=== PATIENT | female | born 1960 | race Caucasian/White ===

== ENCOUNTER 2020-07-05 11:28 | Inpatient (IN) ==
[2020-07-05] MEDS ORDERED: Naloxone 0.4 MG/ML INJ IVP PRN (15:28)
[2020-07-05] MEDS ORDERED: Melatonin 3 MG TABLET PO PRN (16:09)
[2020-07-05] MEDS ORDERED: Ondansetron 4 MG/2 ML VIAL IVP PRN (16:09)
[2020-07-05] MEDS: Carbidopa/Levodopa ER 50/200 TABLET PO SCH ×2 (17:44→22:10)
[2020-07-05 18:26] LABS: Amphetamine Screen,Urine Negative ng/mL (Cutoff=1000); Barbiturate Screen,Urine Negative ng/mL (Cutoff=200); Benzodiazepines Screen,Urine Negative ng/mL (Cutoff=200); Cannabinoid Screen,Urine Negative ng/mL (Cutoff = 50); Cocaine Screen,Urine Negative ng/mL (Cutoff= 300); Opiate Screen,Urine Positive ng/mL (Cutoff=300); Phencyclidine Screen,Urine Negative ng/mL (Cutoff=25)
[2020-07-05] MEDS: Baclofen 10 MG TABLET PO PRN (19:45)
[2020-07-05] MEDS ORDERED: lamoTRIgine 100 MG TABLET PO SCH (21:00)
[2020-07-06] MEDS ORDERED: Potassium Chloride 40 MEQ, Lidocaine 1% 2 ML in 0.9 % Sodium Chloride 500 ML IVPB ONE (02:00)
[2020-07-06] MEDS: Baclofen 10 MG TABLET PO PRN (03:38)
[2020-07-06 04:44] LABS: Prothrombin Time 11.7 Seconds (9.4-12.1)
[2020-07-06 04:45] LABS: Basophils # 0.1 K/mcL (0.0-0.2); Basophils % 0.9 %; Eosinophils # 0.4 K/mcL (0.0-0.6); Hematocrit 37.8 % (35.3-44.9); Hemoglobin 12.5 g/dL (11.5-15.4); Immature Granulocytes % 0.2 % (0-4); Lymphocytes # 1.7 K/mcL (0.6-4.6); Lymphocytes % 30.8 %; Mean Corpuscular HGB Conc 33.1 g/dL (31.6-35.5); Mean Corpuscular Hemoglobin 30.3 pg (28.0-33.3); Mean Corpuscular Volume 91.5 fL (83.0-100.0); Mean Platelet Volume 8.8 fL (9.4-12.4); Monocytes # 0.6 K/mcL (0.0-1.3); Monocytes % 11.5 %; Neutrophils # 2.8 K/mcL (1.6-8.9); Platelet Count 205 K/mcL (140-400); Red Blood Count 4.13 M/mcL (3.82-4.97); Red Cell Distribution Width 13.6 % (11.5-14.5); Segmented Neutrophils % 49.6 %; White Blood Count 5.6 K/mcL (4.3-11.1)
[2020-07-06 05:59] LABS: BUN/Creatinine Ratio 22 (6-26); Blood Urea Nitrogen 17 mg/dL (6-20); Calcium 9.6 mg/dL (8.6-10.3); Carbon Dioxide 26 mEq/L (23-29); Chloride 105 mEq/L (98-107); Glucose 71 mg/dL (70-105); Magnesium 1.8 mg/dL (1.6-2.6); Osmolality,Calculated 296 (280-300); Phosphorous 2.8 mg/dL (2.7-4.5); Potassium 3.8 mEq/L (3.5-5.1); Sodium 143 mEq/L (136-145); eGFR For African Americans > 60 (> 60); eGFR For Non-African Americans > 60 (> 60)
[2020-07-06] MEDS ORDERED: TOTAL JOINT MIXTURE (100ML) INTRAART ONE (06:00)
[2020-07-06] MEDS ORDERED: Povidone-Iodine 45 ML, Sodium Chloride IRRigation 1,000 ML IR ONE (06:00)
[2020-07-06] MEDS ORDERED: Ethanol\\Acetic Acid\\Na Ace\\Ben 1,000 ML IRRIG.SOLN IR ONE (07:11)
[2020-07-06] MEDS ORDERED: Vancomycin 1,000 MG VIAL ONE (07:11)
[2020-07-06] MEDS ORDERED: *HR* Midazolam HCl 2 MG/2 ML VIAL ONE (07:23)
[2020-07-06] MEDS ORDERED: *HR* Succinylcholine 200 MG/10 ML VIAL IVP ONE (07:23)
[2020-07-06] MEDS ORDERED: *HR* Propofol 200 MG/20 ML VIAL IVP ONE ×2 (07:23→08:15)
[2020-07-06] MEDS ORDERED: Lidocaine -MPF 2% 2 ML VIAL ONE (07:23)
[2020-07-06] MEDS ORDERED: Dexamethasone 4 MG/ML VIAL ONE (07:23)
[2020-07-06] MEDS ORDERED: *HR* FentaNYL (PF) 100 MCG/2 ML VIAL ONE (07:23)
[2020-07-06] MEDS ORDERED: Ondansetron 4 MG/2 ML VIAL ONE (07:23)
[2020-07-06] MEDS ORDERED: Lidocaine HCL 4 ML Topical Solution (Laryng-O-Jet Kit Sterile Pak) TP ONE (07:25)
[2020-07-06] MEDS ORDERED: Tranexamic Acid 1,000 MG/10 ML VIAL ONE (07:25)
[2020-07-06] MEDS: Carbidopa/Levodopa ER 50/200 TABLET PO SCH ×2 (07:38→21:42)
[2020-07-06] MEDS ORDERED: CeFAZolin Syr 2,000MG/20 ML 2,000 MG/20 ML SYRINGE IVPB ONE (08:07)
[2020-07-06] MEDS ORDERED: Albuterol 2.5 MG/3 ML NEBULIZER IH PRN (08:13)
[2020-07-06] MEDS ORDERED: *HR* HYDROmorphone PF 0.5 MG/0.5 ML SYRINGE IVP PRN (08:13)
[2020-07-06] MEDS ORDERED: *HR* OxyCODONE Immed Rel 5 MG TABLET PO PRN (08:13)
[2020-07-06] MEDS ORDERED: Ondansetron 4 MG/2 ML VIAL IVP PRN ×2 (08:13→11:26)
[2020-07-06] MEDS ORDERED: Acetaminophen IV 1,000 MG/100 ML BAG IVPB ONE (08:13)
[2020-07-06] MEDS ORDERED: *HR* PHENYLEPHRINE 1,000 MCG/10 ML SYRINGE IVP ONE (08:55)
[2020-07-06] MEDS ORDERED: PARoxetine 20 MG TABLET PO SCH (09:00)
[2020-07-06] MEDS ORDERED: Cholecalciferol (D-3) 1,000 UNIT (25MCG) TABLET PO SCH (09:00)
[2020-07-06] MEDS ORDERED: Multivit/Ca/Min/Fe/FA 1 TAB TABLET PO SCH ×2 (09:00→11:26)
[2020-07-06 10:48] LABS: Hematocrit 32.5 % (35.3-44.9)
[2020-07-06 10:49] LABS: Hemoglobin 10.5 g/dL (11.5-15.4)
[2020-07-06] MEDS ORDERED: Dextrose Gel 15 GM/37.5 ML TUBE PO PRN ×2 (11:26)
[2020-07-06] MEDS ORDERED: D5% in Water 1,000 ML IVC PRN (11:26)
[2020-07-06] MEDS ORDERED: MOM Conc 10 ML UD.LIQ PO PRN (11:26)
[2020-07-06] MEDS ORDERED: Melatonin 3 MG TABLET PO PRN (11:26)
[2020-07-06] MEDS ORDERED: Naloxone 0.4 MG/ML INJ IVP PRN (11:26)
[2020-07-06] MEDS ORDERED: *HR* Promethazine 25 MG/ML VIAL IM PRN (11:26)
[2020-07-06] MEDS ORDERED: *HR* Dextrose 50 % in Water (Vial) 50 ML VIAL IVP PRN (11:26)
[2020-07-06] MEDS: Zinc Sulfate 220 MG CAPSULE PO SCH (12:23)
[2020-07-06] MEDS: Ascorbic Acid 500 MG TABLET PO SCH ×2 (12:23→16:34)
[2020-07-06] MEDS ORDERED: 0.9 % Sodium Chloride 1,000 ML ONE (15:03)
[2020-07-06] MEDS ORDERED: 0.9 % Sodium Chloride 1,000 ML IVC ONE (15:12)
[2020-07-06] MEDS: Insulin LISPRO 300 UNITS/3 ML VIAL SUBQ SCH ×3 (15:44→21:37)
[2020-07-06] MEDS: Ringers Solution, Lactated 1,000 ML IVC SCH (16:33)
[2020-07-06] MEDS: Ketorolac 15 MG/ML VIAL IVP SCH ×2 (16:34→23:51)
[2020-07-06] MEDS: CeFAZolin 2 GM/120 ML BAG IVPB SCH ×2 (16:42→23:51)
[2020-07-06] MEDS: lamoTRIgine 100 MG TABLET PO SCH (21:42)
[2020-07-06] MEDS: HYDROcodone BIT/Homatropine 5 MG TABLET PO PRN (21:42)
[2020-07-07 04:31] LABS: Basophils % 0.5 %; Eosinophils # 0.1 K/mcL (0.0-0.6); Eosinophils % 2.1 %; Hematocrit 25.1 % (35.3-44.9); Immature Granulocytes % 0.4 % (0-4); Lymphocytes # 1.3 K/mcL (0.6-4.6); Lymphocytes % 22.9 %; Mean Corpuscular HGB Conc 33.9 g/dL (31.6-35.5); Mean Corpuscular Hemoglobin 31.7 pg (28.0-33.3); Mean Corpuscular Volume 93.7 fL (83.0-100.0); Mean Platelet Volume 9.3 fL (9.4-12.4); Monocytes # 0.7 K/mcL (0.0-1.3); Monocytes % 11.7 %; Neutrophils # 3.5 K/mcL (1.6-8.9); Platelet Count 164 K/mcL (140-400); Red Blood Count 2.68 M/mcL (3.82-4.97); Red Cell Distribution Width 13.7 % (11.5-14.5); Segmented Neutrophils % 62.4 %; White Blood Count 5.6 K/mcL (4.3-11.1)
[2020-07-07 04:33] LABS: Hemoglobin 8.5 g/dL (11.5-15.4)
[2020-07-07 04:52] LABS: BUN/Creatinine Ratio 24 (6-26); Blood Urea Nitrogen 23 mg/dL (6-20); Calcium 8.4 mg/dL (8.6-10.3); Carbon Dioxide 26 mEq/L (23-29); Chloride 105 mEq/L (98-107); Glucose 152 mg/dL (70-105); Osmolality,Calculated 295 (280-300); Potassium 3.2 mEq/L (3.5-5.1); Sodium 139 mEq/L (136-145); eGFR For African Americans > 60 (> 60); eGFR For Non-African Americans > 60 (> 60)
[2020-07-07] MEDS: Ketorolac 15 MG/ML VIAL IVP SCH (06:01)
[2020-07-07] MEDS ORDERED: 0.9 % Sodium Chloride 1,000 ML IVC ONE (06:18)
[2020-07-07] MEDS ORDERED: 0.9 % Sodium Chloride 500 ML IV ONE (06:28)
[2020-07-07] MEDS: PARoxetine 20 MG TABLET PO SCH (08:16)
[2020-07-07] MEDS: Zinc Sulfate 220 MG CAPSULE PO SCH (08:16)
[2020-07-07] MEDS: Cholecalciferol (D-3) 1,000 UNIT (25MCG) TABLET PO SCH (08:17)
[2020-07-07] MEDS: Ascorbic Acid 500 MG TABLET PO SCH ×2 (08:17→19:03)
[2020-07-07] MEDS: *HR* OxyCODONE Immed Rel 5 MG TABLET PO PRN ×3 (08:17→19:02)
[2020-07-07] MEDS: Carbidopa/Levodopa ER 50/200 TABLET PO SCH ×2 (08:17→20:13)
[2020-07-07] MEDS: Aspirin Enteric Coated 81 MG Tablet PO SCH ×2 (08:17→19:56)
[2020-07-07] MEDS: lamoTRIgine 100 MG TABLET PO SCH ×2 (08:17→20:13)
[2020-07-07] MEDS: Insulin LISPRO 300 UNITS/3 ML VIAL SUBQ SCH ×4 (08:18→20:13)
[2020-07-07] MEDS: HYDROcodone BIT/Homatropine 5 MG TABLET PO PRN (11:33)
[2020-07-07] MEDS: Ringers Solution, Lactated 1,000 ML IVC SCH (11:45)
[2020-07-07] MEDS: Multivit/Ca/Min/Fe/FA 1 TAB TABLET PO SCH (11:50)
[2020-07-07] MEDS: Baclofen 10 MG TABLET PO PRN (13:05)
[2020-07-07] MEDS ORDERED: *HR* HYDROmorphone (PF) 1 MG/ML SYRINGE IVP ONE (22:49)
[2020-07-08 02:53] LABS: Basophils % 0.3 %; Eosinophils # 0.2 K/mcL (0.0-0.6); Eosinophils % 2.7 %; Hematocrit 23.2 % (35.3-44.9); Hemoglobin 7.7 g/dL (11.5-15.4); Immature Granulocytes % 0.3 % (0-4); Lymphocytes # 1.5 K/mcL (0.6-4.6); Lymphocytes % 23.3 %; Mean Corpuscular HGB Conc 33.2 g/dL (31.6-35.5); Mean Corpuscular Hemoglobin 31.3 pg (28.0-33.3); Mean Corpuscular Volume 94.3 fL (83.0-100.0); Mean Platelet Volume 9.4 fL (9.4-12.4); Monocytes # 0.6 K/mcL (0.0-1.3); Monocytes % 9.1 %; Platelet Count 161 K/mcL (140-400); Red Blood Count 2.46 M/mcL (3.82-4.97); Red Cell Distribution Width 14.2 % (11.5-14.5); Segmented Neutrophils % 64.3 %; White Blood Count 6.3 K/mcL (4.3-11.1)
[2020-07-08 03:15] LABS: BUN/Creatinine Ratio 38 (6-26); Blood Urea Nitrogen 21 mg/dL (6-20); Calcium 8.4 mg/dL (8.6-10.3); Carbon Dioxide 26 mEq/L (23-29); Chloride 108 mEq/L (98-107); Glucose 105 mg/dL (70-105); Osmolality,Calculated 291 (280-300); Potassium 3.3 mEq/L (3.5-5.1); Sodium 139 mEq/L (136-145); eGFR For African Americans > 60 (> 60); eGFR For Non-African Americans > 60 (> 60)
[2020-07-08] MEDS: Zinc Sulfate 220 MG CAPSULE PO SCH (08:05)
[2020-07-08] MEDS: lamoTRIgine 100 MG TABLET PO SCH ×2 (08:05→20:47)
[2020-07-08] MEDS: Aspirin Enteric Coated 81 MG Tablet PO SCH (08:05)
[2020-07-08] MEDS: PARoxetine 20 MG TABLET PO SCH (08:06)
[2020-07-08] MEDS: Cholecalciferol (D-3) 1,000 UNIT (25MCG) TABLET PO SCH (08:06)
[2020-07-08] MEDS: *HR* OxyCODONE Immed Rel 5 MG TABLET PO PRN ×2 (08:07→17:15)
[2020-07-08] MEDS: Carbidopa/Levodopa ER 50/200 TABLET PO SCH ×2 (08:07→20:47)
[2020-07-08] MEDS: Ascorbic Acid 500 MG TABLET PO SCH ×2 (08:07→17:03)
[2020-07-08] MEDS: Insulin LISPRO 300 UNITS/3 ML VIAL SUBQ SCH ×4 (08:08→20:27)
[2020-07-08] MEDS ORDERED: 0.9 % Sodium Chloride 250 ML ONE ×2 (10:31→19:58)
[2020-07-08] MEDS: *HR* FentaNYL PATCH 50 MCG PATCH TD SCH (16:55)
[2020-07-08] MEDS: Multivit/Ca/Min/Fe/FA 1 TAB TABLET PO SCH (17:24)
[2020-07-08] MEDS: Sennosides 8.6 MG TABLET PO PRN (20:51)
[2020-07-09] MEDS: *HR* OxyCODONE Immed Rel 5 MG TABLET PO PRN ×3 (01:25→18:25)
[2020-07-09 05:47] LABS: Hematocrit 28.3 % (35.3-44.9); Hemoglobin 9.6 g/dL (11.5-15.4); Mean Corpuscular HGB Conc 33.9 g/dL (31.6-35.5); Mean Corpuscular Hemoglobin 31.1 pg (28.0-33.3); Mean Corpuscular Volume 91.6 fL (83.0-100.0); Mean Platelet Volume 8.8 fL (9.4-12.4); Platelet Count 147 K/mcL (140-400); Red Blood Count 3.09 M/mcL (3.82-4.97); Red Cell Distribution Width 15.2 % (11.5-14.5)
[2020-07-09] MEDS: Aspirin Enteric Coated 81 MG Tablet PO SCH (08:07)
[2020-07-09 08:08] LABS: BUN/Creatinine Ratio 24 (6-26); Blood Urea Nitrogen 12 mg/dL (6-20); Calcium 8.4 mg/dL (8.6-10.3); Carbon Dioxide 28 mEq/L (23-29); Chloride 110 mEq/L (98-107); Glucose 89 mg/dL (70-105); Osmolality,Calculated 289 (280-300); Potassium 3.5 mEq/L (3.5-5.1); Sodium 140 mEq/L (136-145); eGFR For African Americans > 60 (> 60); eGFR For Non-African Americans > 60 (> 60)
[2020-07-09] MEDS: Cholecalciferol (D-3) 1,000 UNIT (25MCG) TABLET PO SCH (08:08)
[2020-07-09] MEDS: lamoTRIgine 100 MG TABLET PO SCH ×2 (08:09→21:53)
[2020-07-09] MEDS: PARoxetine 20 MG TABLET PO SCH (08:10)
[2020-07-09] MEDS: Zinc Sulfate 220 MG CAPSULE PO SCH (08:11)
[2020-07-09] MEDS: Ascorbic Acid 500 MG TABLET PO SCH ×2 (08:11→16:13)
[2020-07-09] MEDS: Carbidopa/Levodopa ER 50/200 TABLET PO SCH ×2 (08:12→21:52)
[2020-07-09] MEDS: Insulin LISPRO 300 UNITS/3 ML VIAL SUBQ SCH ×4 (08:18→21:53)
[2020-07-09] MEDS: Multivit/Ca/Min/Fe/FA 1 TAB TABLET PO SCH (11:21)
[2020-07-09] MEDS: Baclofen 10 MG TABLET PO PRN (18:34)
[2020-07-09] MEDS: Sennosides 8.6 MG TABLET PO PRN (21:56)
[2020-07-10] MEDS: *HR* OxyCODONE Immed Rel 5 MG TABLET PO PRN ×3 (03:25→20:02)
[2020-07-10] MEDS: Baclofen 10 MG TABLET PO PRN ×2 (03:28→11:42)
[2020-07-10] MEDS: Aspirin Enteric Coated 81 MG Tablet PO SCH (09:13)
[2020-07-10] MEDS: Ascorbic Acid 500 MG TABLET PO SCH ×2 (09:14→16:48)
[2020-07-10] MEDS: Zinc Sulfate 220 MG CAPSULE PO SCH (09:14)
[2020-07-10] MEDS: lamoTRIgine 100 MG TABLET PO SCH ×2 (09:14→20:02)
[2020-07-10] MEDS: PARoxetine 20 MG TABLET PO SCH (09:15)
[2020-07-10] MEDS: Carbidopa/Levodopa ER 50/200 TABLET PO SCH ×2 (09:15→20:02)
[2020-07-10] MEDS: Insulin LISPRO 300 UNITS/3 ML VIAL SUBQ SCH ×4 (10:40→20:03)
[2020-07-10] MEDS: Cholecalciferol (D-3) 1,000 UNIT (25MCG) TABLET PO SCH (10:52)
[2020-07-10] MEDS: Multivit/Ca/Min/Fe/FA 1 TAB TABLET PO SCH (12:32)
[2020-07-11] MEDS: Baclofen 10 MG TABLET PO PRN ×3 (00:05→18:34)
[2020-07-11] MEDS: *HR* OxyCODONE Immed Rel 5 MG TABLET PO PRN ×2 (06:04→15:22)
[2020-07-11] MEDS: Insulin LISPRO 300 UNITS/3 ML VIAL SUBQ SCH ×3 (08:08→16:58)
[2020-07-11] MEDS: Zinc Sulfate 220 MG CAPSULE PO SCH (08:09)
[2020-07-11] MEDS: Aspirin Enteric Coated 81 MG Tablet PO SCH (08:09)
[2020-07-11] MEDS: PARoxetine 20 MG TABLET PO SCH (08:09)
[2020-07-11] MEDS: lamoTRIgine 100 MG TABLET PO SCH (08:10)
[2020-07-11] MEDS: Ascorbic Acid 500 MG TABLET PO SCH ×2 (08:10→15:23)
[2020-07-11] MEDS: Carbidopa/Levodopa ER 50/200 TABLET PO SCH (08:10)
[2020-07-11] MEDS: Cholecalciferol (D-3) 1,000 UNIT (25MCG) TABLET PO SCH (08:10)
[2020-07-11 12:33] LABS: Influenza A PCR Negative (Negative); Influenza B PCR Negative (Negative); Resp. Syncytial Virus PCR Negative (Negative)
[2020-07-11 12:34] LABS: SARS-CoV-2 by PCR (In House) Negative (Negative)
[2020-07-11] MEDS: Multivit/Ca/Min/Fe/FA 1 TAB TABLET PO SCH (12:38)
[2020-07-11] MEDS: *HR* FentaNYL PATCH 50 MCG PATCH TD SCH (12:38)
[2020-07-11 18:50] VITALS: BP 116/74
== END 2020-07-11 19:38 | DRG 470 ==
LOC: 3NENU
PROVIDERS: ADMIT Internal Medicine; ATTEND Internal Medicine

== ENCOUNTER 2020-08-20 14:21 | Observation (INO) ==
[2020-08-20] MEDS ORDERED: Morphine Sulfate 2 MG/ML SYRINGE IVP ONE (15:09)
[2020-08-20] MEDS ORDERED: Ondansetron 4 MG/2 ML VIAL IVP ONE (15:09)
[2020-08-20 15:43] LABS: Basophils # 0.1 K/mcL (0.0-0.2); Basophils % 1.1 %; Eosinophils # 0.4 K/mcL (0.0-0.6); Eosinophils % 6.1 %; Hematocrit 39.3 % (35.3-44.9); Hemoglobin 12.5 g/dL (11.5-15.4); Immature Granulocytes % 0.2 % (0-4); Lymphocytes # 1.5 K/mcL (0.6-4.6); Lymphocytes % 24.2 %; Mean Corpuscular HGB Conc 31.8 g/dL (31.6-35.5); Mean Corpuscular Hemoglobin 29.8 pg (28.0-33.3); Mean Corpuscular Volume 93.8 fL (83.0-100.0); Mean Platelet Volume 8.9 fL (9.4-12.4); Monocytes # 0.4 K/mcL (0.0-1.3); Monocytes % 6.9 %; Neutrophils # 3.8 K/mcL (1.6-8.9); Platelet Count 225 K/mcL (140-400); Red Blood Count 4.19 M/mcL (3.82-4.97); Red Cell Distribution Width 13.2 % (11.5-14.5); Segmented Neutrophils % 61.5 %; White Blood Count 6.2 K/mcL (4.3-11.1)
[2020-08-20 16:05] LABS: BUN/Creatinine Ratio 22 (6-26); Blood Urea Nitrogen 17 mg/dL (6-20); Calcium 9.6 mg/dL (8.6-10.3); Carbon Dioxide 31 mEq/L (23-29); Chloride 102 mEq/L (98-107); Glucose 86 mg/dL (70-105); Osmolality,Calculated 293 (280-300); Potassium 3.8 mEq/L (3.5-5.1); Sodium 141 mEq/L (136-145); eGFR For African Americans > 60 (> 60); eGFR For Non-African Americans > 60 (> 60)
[2020-08-20] MEDS ORDERED: Ondansetron 4 MG/2 ML VIAL IVP PRN (16:42)
[2020-08-20] MEDS ORDERED: Naloxone 0.4 MG/ML INJ IVP PRN (16:42)
[2020-08-20] MEDS: Ascorbic Acid 500 MG TABLET PO SCH (19:09)
[2020-08-20] MEDS: *HR* Heparin 5,000 UNIT/ML VIAL SQ SCH (19:09)
[2020-08-20] MEDS: *HR* FentaNYL PATCH 50 MCG PATCH TD SCH ×2 (19:38→19:48)
[2020-08-20] MEDS: Baclofen 10 MG TABLET PO PRN (19:55)
[2020-08-20] MEDS: lamoTRIgine 100 MG TABLET PO SCH (22:16)
[2020-08-20] MEDS: Carbidopa/Levodopa ER 50/200 TABLET PO SCH (22:16)
[2020-08-21] MEDS ORDERED: Acetaminophen IV 1,000 MG/100 ML BAG IVPB ONE (02:41)
[2020-08-21] MEDS: *HR* Heparin 5,000 UNIT/ML VIAL SQ SCH ×2 (05:47→18:09)
[2020-08-21] MEDS: PARoxetine 20 MG TABLET PO SCH (08:03)
[2020-08-21] MEDS: lamoTRIgine 100 MG TABLET PO SCH ×2 (08:03→22:21)
[2020-08-21] MEDS: Carbidopa/Levodopa ER 50/200 TABLET PO SCH ×2 (08:04→22:21)
[2020-08-21] MEDS: Cholecalciferol (D-3) 1,000 UNIT (25MCG) TABLET PO SCH (08:04)
[2020-08-21] MEDS: Ascorbic Acid 500 MG TABLET PO SCH ×2 (08:04→18:09)
[2020-08-21] MEDS: Aspirin Enteric Coated 81 MG Tablet PO SCH (08:05)
[2020-08-21] MEDS ORDERED: Isovue-370 500 ML BOTTLE IVP ONE (09:51)
[2020-08-21] MEDS: Baclofen 10 MG TABLET PO PRN ×2 (11:10→22:21)
[2020-08-21] MEDS: Furosemide 40 MG TABLET PO SCH (18:09)
[2020-08-22 02:17] LABS: Basophils % 0.6 %; Eosinophils # 0.4 K/mcL (0.0-0.6); Eosinophils % 5.6 %; Hematocrit 38.8 % (35.3-44.9); Hemoglobin 12.3 g/dL (11.5-15.4); Immature Granulocytes % 0.1 % (0-4); Lymphocytes # 1.3 K/mcL (0.6-4.6); Mean Corpuscular HGB Conc 31.7 g/dL (31.6-35.5); Mean Corpuscular Hemoglobin 29.7 pg (28.0-33.3); Mean Corpuscular Volume 93.7 fL (83.0-100.0); Mean Platelet Volume 8.8 fL (9.4-12.4); Monocytes # 0.5 K/mcL (0.0-1.3); Neutrophils # 4.6 K/mcL (1.6-8.9); Platelet Count 224 K/mcL (140-400); Red Blood Count 4.14 M/mcL (3.82-4.97); Segmented Neutrophils % 67.7 %; White Blood Count 6.7 K/mcL (4.3-11.1)
[2020-08-22 02:40] LABS: BUN/Creatinine Ratio 13 (6-26); Blood Urea Nitrogen 8 mg/dL (6-20); Calcium 9.2 mg/dL (8.6-10.3); Carbon Dioxide 31 mEq/L (23-29); Chloride 101 mEq/L (98-107); Glucose 103 mg/dL (70-105); Osmolality,Calculated 287 (280-300); Potassium 3.2 mEq/L (3.5-5.1); Sodium 139 mEq/L (136-145); eGFR For African Americans > 60 (> 60); eGFR For Non-African Americans > 60 (> 60)
[2020-08-22] MEDS: *HR* OxyCODONE Immed Rel 5 MG TABLET PO PRN ×3 (04:42→21:16)
[2020-08-22] MEDS: *HR* Heparin 5,000 UNIT/ML VIAL SQ SCH ×2 (04:42→16:26)
[2020-08-22] MEDS: Ascorbic Acid 500 MG TABLET PO SCH ×2 (09:00→16:26)
[2020-08-22] MEDS: Aspirin Enteric Coated 81 MG Tablet PO SCH (09:00)
[2020-08-22] MEDS: Cholecalciferol (D-3) 1,000 UNIT (25MCG) TABLET PO SCH (09:00)
[2020-08-22] MEDS: lamoTRIgine 100 MG TABLET PO SCH ×2 (09:00→21:16)
[2020-08-22] MEDS: Furosemide 40 MG TABLET PO SCH ×2 (09:00→16:26)
[2020-08-22] MEDS: Carbidopa/Levodopa ER 50/200 TABLET PO SCH ×2 (09:00→21:16)
[2020-08-22] MEDS: PARoxetine 20 MG TABLET PO SCH (09:00)
[2020-08-22] MEDS: Baclofen 10 MG TABLET PO PRN (12:46)
[2020-08-23 00:37] VITALS: PULSE 77; O2SAT 93
[2020-08-23] MEDS: *HR* OxyCODONE Immed Rel 5 MG TABLET PO PRN (05:07)
[2020-08-23] MEDS: *HR* Heparin 5,000 UNIT/ML VIAL SQ SCH (05:08)
[2020-08-23 05:28] VITALS: BP 103/70; TEMP 97.5
[2020-08-23] MEDS: lamoTRIgine 100 MG TABLET PO SCH (07:42)
[2020-08-23] MEDS: Ascorbic Acid 500 MG TABLET PO SCH (07:42)
[2020-08-23] MEDS: PARoxetine 20 MG TABLET PO SCH (07:42)
[2020-08-23] MEDS: Furosemide 40 MG TABLET PO SCH (07:42)
[2020-08-23] MEDS: Aspirin Enteric Coated 81 MG Tablet PO SCH (07:42)
[2020-08-23] MEDS: Carbidopa/Levodopa ER 50/200 TABLET PO SCH (07:43)
[2020-08-23] MEDS: Cholecalciferol (D-3) 1,000 UNIT (25MCG) TABLET PO SCH (07:43)
== END 2020-08-23 10:52 | disposition home health service (06) ==
LOC: EMEROOARM 14:21 → 3NENU 14:21 → SUATTDRO 15:56 → 3NENU 17:53
PROVIDERS: ADMIT Family Medicine; ATTEND Family Medicine

== ENCOUNTER 2021-06-11 09:48 | Inpatient (IN) ==
[2021-06-11] MEDS ORDERED: Acetaminophen 325 MG TABLET PO ONE (13:54)
[2021-06-11] MEDS ORDERED: Ibuprofen 600 MG TABLET PO ONE (14:02)
[2021-06-11] MEDS ORDERED: Morphine Sulfate 2 MG/ML SYRINGE IVP ONE (16:11)
[2021-06-11 17:35] LABS: Basophils % 0.3 %; Eosinophils % 0.3 %; Hematocrit 39.8 % (35.3-44.9); Hemoglobin 12.9 g/dL (11.5-15.4); Immature Granulocytes % 0.3 % (0-4); Lymphocytes # 0.7 K/mcL (0.6-4.6); Lymphocytes % 6.5 %; Mean Corpuscular HGB Conc 32.4 g/dL (31.6-35.5); Mean Corpuscular Hemoglobin 30.6 pg (28.0-33.3); Mean Corpuscular Volume 94.3 fL (83.0-100.0); Mean Platelet Volume 8.9 fL (9.4-12.4); Monocytes # 0.9 K/mcL (0.0-1.3); Monocytes % 8.1 %; Neutrophils # 8.9 K/mcL (1.6-8.9); Platelet Count 176 K/mcL (140-400); Red Blood Count 4.22 M/mcL (3.82-4.97); Red Cell Distribution Width 13.3 % (11.5-14.5); Segmented Neutrophils % 84.5 %; White Blood Count 10.5 K/mcL (4.3-11.1)
[2021-06-11 17:54] LABS: BUN/Creatinine Ratio 18 (6-26); Blood Urea Nitrogen 17 mg/dL (8-23); C-Reactive Protein 139 mg/L (Less than 10); Calcium 9.7 mg/dL (8.6-10.3); Carbon Dioxide 30 mEq/L (23-29); Chloride 100 mEq/L (98-107); Glucose 89 mg/dL (70-105); Osmolality,Calculated 287 (280-300); Sodium 138 mEq/L (136-145); eGFR For African Americans > 60 (> 60); eGFR For Non-African Americans 59 (> 60)
[2021-06-11] MEDS ORDERED: Acetaminophen 325 MG TABLET PO PRN (18:12)
[2021-06-11] MEDS ORDERED: Naloxone 0.4 MG/ML INJ IVP PRN (18:12)
[2021-06-11] MEDS ORDERED: *HR* OxyCODONE Immed Rel 5 MG TABLET PO PRN (18:12)
[2021-06-11] MEDS ORDERED: *HR* HYDROcodone/Acet 5/325 mg TABLET PO PRN (18:12)
[2021-06-11] MEDS ORDERED: Ondansetron 4 MG/2 ML VIAL IVP PRN (18:12)
[2021-06-11] MEDS ORDERED: *HR* FentaNYL PATCH 50 MCG PATCH TD SCH (18:30)
[2021-06-11] MEDS: *HR* OxyCODONE Immed Rel 5 MG TABLET PO PRN (20:00)
[2021-06-11] MEDS: Carbidopa/Levodopa ER 50/200 TABLET PO SCH (20:01)
[2021-06-11] MEDS: lamoTRIgine 100 MG TABLET PO SCH (20:01)
[2021-06-12 04:24] LABS: Basophils % 0.3 %; Eosinophils % 0.1 %; Hemoglobin 12.8 g/dL (11.5-15.4); Immature Granulocytes % 0.3 % (0-4); Lymphocytes # 0.5 K/mcL (0.6-4.6); Lymphocytes % 4.4 %; Mean Corpuscular HGB Conc 33.7 g/dL (31.6-35.5); Mean Corpuscular Hemoglobin 31.3 pg (28.0-33.3); Mean Corpuscular Volume 92.9 fL (83.0-100.0); Mean Platelet Volume 9.2 fL (9.4-12.4); Monocytes # 0.9 K/mcL (0.0-1.3); Monocytes % 8.1 %; Platelet Count 188 K/mcL (140-400); Red Blood Count 4.09 M/mcL (3.82-4.97); Red Cell Distribution Width 13.4 % (11.5-14.5); Segmented Neutrophils % 86.8 %; White Blood Count 11.6 K/mcL (4.3-11.1)
[2021-06-12 04:47] LABS: Alanine Aminotransferase < 3 Units/L (7-52); Albumin/Globulin Ratio 1.5 (1.1-2.2); Alkaline Phosphatase 59 Units/L (34-104); Aspartate Amino Transferase 20 Units/L (13-39); BUN/Creatinine Ratio 17 (6-26); Bilirubin,Total 0.7 mg/dL (0.3-1.0); Blood Urea Nitrogen 14 mg/dL (8-23); Calcium 9.5 mg/dL (8.6-10.3); Carbon Dioxide 24 mEq/L (23-29); Chloride 99 mEq/L (98-107); Globulin 2.6 g/dL (2.4-3.5); Glucose 89 mg/dL (70-105); Osmolality,Calculated 276 (280-300); Potassium 3.4 mEq/L (3.5-5.1); Sodium 133 mEq/L (136-145); Total Protein 6.6 g/dL (6.4-8.9); eGFR For African Americans > 60 (> 60); eGFR For Non-African Americans > 60 (> 60)
[2021-06-12] MEDS: *HR* OxyCODONE Immed Rel 5 MG TABLET PO PRN (05:00)
[2021-06-12] MEDS: *HR* Heparin 5,000 UNIT/ML VIAL SQ SCH ×2 (05:36→18:04)
[2021-06-12] MEDS ORDERED: Famotidine 20 MG/2 ML VIAL IVP ONE (06:14)
[2021-06-12] MEDS ORDERED: Lidocaine/EPI 1:100k 1% 30 ML VIAL ONE (07:53)
[2021-06-12] MEDS ORDERED: Acetaminophen IV 1,000 MG/100 ML BAG IVPB ONE ×2 (08:00→18:30)
[2021-06-12] MEDS ORDERED: Lidocaine 1% 20 ML MDV ONE (08:34)
[2021-06-12] MEDS ORDERED: *HR* FentaNYL (PF) 100 MCG/2 ML VIAL ONE (08:36)
[2021-06-12] MEDS ORDERED: *HR* Propofol 200 MG/20 ML VIAL IVP ONE (08:36)
[2021-06-12] MEDS ORDERED: *HR* Midazolam HCl 2 MG/2 ML VIAL ONE (08:36)
[2021-06-12] MEDS ORDERED: *HR* HYDROmorphone 2 MG/ML SYRINGE IVP PRN (10:15)
[2021-06-12] MEDS ORDERED: Ringers Solution, Lactated 1,000 ML IVC ONE (10:20)
[2021-06-12] MEDS: Aspirin Enteric Coated 81 MG Tablet PO SCH (11:10)
[2021-06-12] MEDS: Cholecalciferol (D-3) 1,000 UNIT (25MCG) TABLET PO SCH (11:10)
[2021-06-12] MEDS: lamoTRIgine 100 MG TABLET PO SCH ×2 (11:11→21:38)
[2021-06-12] MEDS: Carbidopa/Levodopa ER 50/200 TABLET PO SCH ×2 (11:11→21:38)
[2021-06-12] MEDS: PARoxetine 20 MG TABLET PO SCH (11:12)
[2021-06-12] MEDS: *HR* HYDROmorphone 2 MG/ML SYRINGE IVP PRN ×3 (11:31→21:49)
[2021-06-12] MEDS: Furosemide 40 MG TABLET PO SCH ×2 (12:31→18:04)
[2021-06-12 12:45] LABS: Appearance,Synovial Fluid Hazy (Clear-Hazy); Color,Synovial Fluid Amber (Straw)
[2021-06-12] MEDS: Baclofen 10 MG TABLET PO PRN (15:57)
[2021-06-12] MEDS ORDERED: *HR* FentaNYL PATCH 50 MCG PATCH TD SCH (18:00)
[2021-06-12] MEDS ORDERED: Ketorolac 30 MG/ML VIAL IVP ONE (18:27)
[2021-06-13] MEDS: *HR* HYDROmorphone 2 MG/ML SYRINGE IVP PRN ×5 (03:29→21:14)
[2021-06-13] MEDS: *HR* Heparin 5,000 UNIT/ML VIAL SQ SCH ×2 (06:05→16:26)
[2021-06-13] MEDS: Furosemide 40 MG TABLET PO SCH ×2 (07:49→16:27)
[2021-06-13] MEDS: PARoxetine 20 MG TABLET PO SCH (07:49)
[2021-06-13] MEDS: Aspirin Enteric Coated 81 MG Tablet PO SCH (07:49)
[2021-06-13] MEDS: lamoTRIgine 100 MG TABLET PO SCH ×2 (07:49→19:45)
[2021-06-13] MEDS: Cholecalciferol (D-3) 1,000 UNIT (25MCG) TABLET PO SCH (07:49)
[2021-06-13] MEDS: Carbidopa/Levodopa ER 50/200 TABLET PO SCH ×2 (07:49→19:45)
[2021-06-14] MEDS: *HR* HYDROmorphone 2 MG/ML SYRINGE IVP PRN ×5 (02:57→21:33)
[2021-06-14] MEDS: Baclofen 10 MG TABLET PO PRN ×2 (03:04→17:13)
[2021-06-14] MEDS: *HR* Heparin 5,000 UNIT/ML VIAL SQ SCH ×2 (06:36→17:13)
[2021-06-14 06:43] LABS: Basophils % 0.2 %; Lymphocytes % 11.2 %
[2021-06-14 06:45] LABS: Eosinophils # 0.1 K/mcL (0.0-0.6); Eosinophils % 0.7 %; Hematocrit 35.9 % (35.3-44.9); Hemoglobin 12.6 g/dL (11.5-15.4); Immature Granulocytes % 0.3 % (0-4); Immature Platelets 2.7 % (1.1-6.1); Mean Corpuscular HGB Conc 35.1 g/dL (31.6-35.5); Mean Corpuscular Hemoglobin 31.9 pg (28.0-33.3); Mean Corpuscular Volume 90.9 fL (83.0-100.0); Mean Platelet Volume 9.4 fL (9.4-12.4); Monocytes # 1.1 K/mcL (0.0-1.3); Monocytes % 11.7 %; Neutrophils # 6.9 K/mcL (1.6-8.9); Platelet Count 233 K/mcL (140-400); Red Blood Count 3.95 M/mcL (3.82-4.97); Red Cell Distribution Width 13.1 % (11.5-14.5); Segmented Neutrophils % 75.9 %; White Blood Count 9.1 K/mcL (4.3-11.1)
[2021-06-14 07:34] LABS: BUN/Creatinine Ratio 12 (6-26); Blood Urea Nitrogen 11 mg/dL (8-23); Calcium 10.1 mg/dL (8.6-10.3); Carbon Dioxide 27 mEq/L (23-29); Chloride 92 mEq/L (98-107); Glucose 93 mg/dL (70-105); Magnesium 1.8 mg/dL (1.6-2.6); Osmolality,Calculated 269 (280-300); Potassium 3.3 mEq/L (3.5-5.1); Sodium 130 mEq/L (136-145); eGFR For African Americans > 60 (> 60); eGFR For Non-African Americans > 60 (> 60)
[2021-06-14] MEDS: lamoTRIgine 100 MG TABLET PO SCH ×2 (08:07→20:11)
[2021-06-14] MEDS: Furosemide 40 MG TABLET PO SCH ×2 (08:08→17:13)
[2021-06-14] MEDS: Cholecalciferol (D-3) 1,000 UNIT (25MCG) TABLET PO SCH (08:08)
[2021-06-14] MEDS: Aspirin Enteric Coated 81 MG Tablet PO SCH (08:08)
[2021-06-14] MEDS: PARoxetine 20 MG TABLET PO SCH (08:08)
[2021-06-14] MEDS ORDERED: Doxycycline 100 MG in 0.9 % Sodium Chloride Mini Bag 100 ML IVPB SCH (09:00)
[2021-06-14] MEDS: Carbidopa/Levodopa ER 50/200 TABLET PO SCH ×2 (09:39→20:11)
[2021-06-14] MEDS: Doxycycline 100 MG in 0.9 % Sodium Chloride Mini Bag 100 ML IVPB SCH ×2 (12:23→17:12)
[2021-06-15 01:34] LABS: Basophils % 0.4 %; Eosinophils # 0.1 K/mcL (0.0-0.6); Eosinophils % 0.7 %; Hematocrit 35.1 % (35.3-44.9); Immature Granulocytes % 0.4 % (0-4); Lymphocytes # 0.8 K/mcL (0.6-4.6); Mean Corpuscular HGB Conc 34.2 g/dL (31.6-35.5); Mean Corpuscular Hemoglobin 30.7 pg (28.0-33.3); Mean Corpuscular Volume 89.8 fL (83.0-100.0); Mean Platelet Volume 8.7 fL (9.4-12.4); Monocytes # 0.9 K/mcL (0.0-1.3); Monocytes % 11.4 %; Neutrophils # 6.3 K/mcL (1.6-8.9); Platelet Count 213 K/mcL (140-400); Red Blood Count 3.91 M/mcL (3.82-4.97); Red Cell Distribution Width 13.1 % (11.5-14.5); Segmented Neutrophils % 77.1 %; White Blood Count 8.2 K/mcL (4.3-11.1)
[2021-06-15] MEDS: *HR* HYDROmorphone (PF) 1 MG/ML SYRINGE IVP PRN ×4 (01:40→19:51)
[2021-06-15 01:53] LABS: BUN/Creatinine Ratio 14 (6-26); Blood Urea Nitrogen 11 mg/dL (8-23); Calcium 9.7 mg/dL (8.6-10.3); Carbon Dioxide 25 mEq/L (23-29); Chloride 94 mEq/L (98-107); Glucose 98 mg/dL (70-105); Magnesium 1.8 mg/dL (1.6-2.6); Osmolality,Calculated 271 (280-300); Potassium 3.2 mEq/L (3.5-5.1); Sodium 131 mEq/L (136-145); eGFR For African Americans > 60 (> 60); eGFR For Non-African Americans > 60 (> 60)
[2021-06-15] MEDS ORDERED: *HR* OxyCODONE Immed Rel 5 MG TABLET PO ONE (02:51)
[2021-06-15] MEDS: *HR* Heparin 5,000 UNIT/ML VIAL SQ SCH ×2 (05:51→17:16)
[2021-06-15] MEDS: Doxycycline 100 MG in 0.9 % Sodium Chloride Mini Bag 100 ML IVPB SCH ×2 (06:42→18:36)
[2021-06-15] MEDS: Baclofen 10 MG TABLET PO PRN (06:42)
[2021-06-15] MEDS: Carbidopa/Levodopa ER 50/200 TABLET PO SCH ×2 (08:12→19:51)
[2021-06-15] MEDS: lamoTRIgine 100 MG TABLET PO SCH ×2 (08:12→19:52)
[2021-06-15] MEDS: Furosemide 40 MG TABLET PO SCH ×2 (08:12→17:16)
[2021-06-15] MEDS: Cholecalciferol (D-3) 1,000 UNIT (25MCG) TABLET PO SCH (08:12)
[2021-06-15] MEDS: Aspirin Enteric Coated 81 MG Tablet PO SCH (08:12)
[2021-06-15] MEDS: PARoxetine 20 MG TABLET PO SCH (08:13)
[2021-06-15] MEDS ORDERED: *HR* FentaNYL PATCH 50 MCG PATCH TD SCH (11:00)
[2021-06-16] MEDS: *HR* HYDROmorphone (PF) 1 MG/ML SYRINGE IVP PRN ×5 (00:17→22:52)
[2021-06-16 05:25] LABS: Basophils % 0.5 %; Eosinophils # 0.2 K/mcL (0.0-0.6); Eosinophils % 2.2 %; Hematocrit 33.2 % (35.3-44.9); Hemoglobin 11.5 g/dL (11.5-15.4); Immature Granulocytes % 0.4 % (0-4); Lymphocytes # 1.1 K/mcL (0.6-4.6); Lymphocytes % 13.6 %; Mean Corpuscular HGB Conc 34.6 g/dL (31.6-35.5); Mean Corpuscular Hemoglobin 31.3 pg (28.0-33.3); Mean Corpuscular Volume 90.5 fL (83.0-100.0); Mean Platelet Volume 8.8 fL (9.4-12.4); Monocytes # 1.1 K/mcL (0.0-1.3); Monocytes % 13.7 %; Neutrophils # 5.7 K/mcL (1.6-8.9); Platelet Count 251 K/mcL (140-400); Red Blood Count 3.67 M/mcL (3.82-4.97); Red Cell Distribution Width 12.9 % (11.5-14.5); Segmented Neutrophils % 69.6 %; White Blood Count 8.2 K/mcL (4.3-11.1)
[2021-06-16] MEDS: *HR* Heparin 5,000 UNIT/ML VIAL SQ SCH ×2 (05:35→17:20)
[2021-06-16] MEDS: Doxycycline 100 MG in 0.9 % Sodium Chloride Mini Bag 100 ML IVPB SCH (05:36)
[2021-06-16 06:00] LABS: BUN/Creatinine Ratio 17 (6-26); Blood Urea Nitrogen 13 mg/dL (8-23); Calcium 9.8 mg/dL (8.6-10.3); Carbon Dioxide 29 mEq/L (23-29); Chloride 92 mEq/L (98-107); Glucose 100 mg/dL (70-105); Magnesium 1.7 mg/dL (1.6-2.6); Osmolality,Calculated 272 (280-300); Potassium 3.2 mEq/L (3.5-5.1); Sodium 131 mEq/L (136-145); eGFR For African Americans > 60 (> 60); eGFR For Non-African Americans > 60 (> 60)
[2021-06-16] MEDS: Carbidopa/Levodopa ER 50/200 TABLET PO SCH ×2 (10:09→20:04)
[2021-06-16] MEDS: Cholecalciferol (D-3) 1,000 UNIT (25MCG) TABLET PO SCH (10:09)
[2021-06-16] MEDS: Aspirin Enteric Coated 81 MG Tablet PO SCH (10:09)
[2021-06-16] MEDS: lamoTRIgine 100 MG TABLET PO SCH ×2 (10:09→20:05)
[2021-06-16] MEDS: PARoxetine 20 MG TABLET PO SCH (10:10)
[2021-06-16] MEDS: Baclofen 10 MG TABLET PO PRN ×2 (10:13→20:05)
[2021-06-16] MEDS: Furosemide 40 MG TABLET PO SCH ×2 (10:13→17:20)
[2021-06-16] MEDS: ceFAZolin 2,000 MG in 0.9 % Sodium Chloride 100 ML IVPB SCH (18:51)
[2021-06-17] MEDS: ceFAZolin 2,000 MG in 0.9 % Sodium Chloride 100 ML IVPB SCH ×2 (00:19→08:56)
[2021-06-17 03:31] LABS: Basophils % 0.4 %; Eosinophils # 0.2 K/mcL (0.0-0.6); Eosinophils % 2.9 %; Hematocrit 33.2 % (35.3-44.9); Hemoglobin 11.2 g/dL (11.5-15.4); Immature Granulocytes % 0.5 % (0-4); Lymphocytes % 12.5 %; Mean Corpuscular HGB Conc 33.7 g/dL (31.6-35.5); Mean Corpuscular Hemoglobin 30.6 pg (28.0-33.3); Mean Corpuscular Volume 90.7 fL (83.0-100.0); Mean Platelet Volume 8.4 fL (9.4-12.4); Monocytes % 12.2 %; Platelet Count 279 K/mcL (140-400); Red Blood Count 3.66 M/mcL (3.82-4.97); Red Cell Distribution Width 12.6 % (11.5-14.5); Segmented Neutrophils % 71.5 %; White Blood Count 8.3 K/mcL (4.3-11.1)
[2021-06-17 03:39] LABS: BUN/Creatinine Ratio 12 (6-26); Blood Urea Nitrogen 11 mg/dL (8-23); Calcium 9.7 mg/dL (8.6-10.3); Carbon Dioxide 31 mEq/L (23-29); Chloride 95 mEq/L (98-107); Glucose 105 mg/dL (70-105); Magnesium 1.6 mg/dL (1.6-2.6); Osmolality,Calculated 282 (280-300); Potassium 3.6 mEq/L (3.5-5.1); Sodium 136 mEq/L (136-145); eGFR For African Americans > 60 (> 60); eGFR For Non-African Americans > 60 (> 60)
[2021-06-17] MEDS: *HR* HYDROmorphone (PF) 1 MG/ML SYRINGE IVP PRN ×2 (03:39→20:57)
[2021-06-17] MEDS: *HR* Heparin 5,000 UNIT/ML VIAL SQ SCH ×2 (05:05→20:48)
[2021-06-17] MEDS: PARoxetine 20 MG TABLET PO SCH (08:55)
[2021-06-17] MEDS: Carbidopa/Levodopa ER 50/200 TABLET PO SCH ×2 (08:55→20:55)
[2021-06-17] MEDS: Aspirin Enteric Coated 81 MG Tablet PO SCH (08:57)
[2021-06-17] MEDS: Furosemide 40 MG TABLET PO SCH (08:57)
[2021-06-17] MEDS: lamoTRIgine 100 MG TABLET PO SCH ×2 (09:00→20:55)
[2021-06-17] MEDS: Cholecalciferol (D-3) 1,000 UNIT (25MCG) TABLET PO SCH (09:01)
[2021-06-17] MEDS ORDERED: *HR* Propofol 200 MG/20 ML VIAL IVP ONE (10:39)
[2021-06-17] MEDS ORDERED: Lidocaine -MPF 2% 5 ML VIAL ONE (10:40)
[2021-06-17] MEDS ORDERED: Ondansetron 4 MG/2 ML VIAL ONE (10:40)
[2021-06-17] MEDS ORDERED: Lidocaine HCL 4 ML Topical Solution (Laryng-O-Jet Kit Sterile Pak) TP ONE (10:40)
[2021-06-17] MEDS ORDERED: *HR* Rocuronium Bromide 50 MG/5 ML VIAL ONE ×3 (10:40→15:00)
[2021-06-17] MEDS ORDERED: *HR* OxyCODONE Immed Rel 5 MG TABLET PO PRN ×2 (10:45→17:58)
[2021-06-17] MEDS ORDERED: *HR* FentaNYL (PF) 100 MCG/2 ML VIAL IVP PRN (10:45)
[2021-06-17] MEDS ORDERED: Povidone-Iodine 45 ML, Sodium Chloride IRRigation 1,000 ML IR ONE (11:00)
[2021-06-17] MEDS ORDERED: *HR* Succinylcholine 200 MG/10 ML VIAL IVP ONE (12:03)
[2021-06-17] MEDS ORDERED: *HR* FentaNYL (PF) 100 MCG/2 ML VIAL ONE (12:03)
[2021-06-17] MEDS ORDERED: Albumin Human 5% 12.5 GM/250 ML IV.SOLN ONE (12:13)
[2021-06-17] MEDS ORDERED: *HR* Vasopressin 20 UNIT/ML VIAL ONE (12:13)
[2021-06-17] MEDS ORDERED: Ethanol\\Acetic Acid\\Na Ace\\Ben 1,000 ML IRRIG.SOLN IR ONE (12:18)
[2021-06-17] MEDS ORDERED: Tobramycin Sulf (Sterile) 1.2 GM VIAL ONE (12:18)
[2021-06-17] MEDS ORDERED: Vancomycin 1,000 MG VIAL ONE (12:18)
[2021-06-17] MEDS ORDERED: Tranexamic Acid 1,000 MG/10 ML VIAL ONE ×2 (13:54→14:02)
[2021-06-17] MEDS ORDERED: Acetaminophen IV 1,000 MG/100 ML BAG IVPB ONE (15:04)
[2021-06-17] MEDS ORDERED: Sugammadex Sodium 200 MG/2 ML VIAL IV ONE (15:31)
[2021-06-17] MEDS ORDERED: Ketamine HCL *QUVA* 50mg (1mL) SYRINGE ONE (15:35)
[2021-06-17] MEDS ORDERED: Acetaminophen 325 MG TABLET PO PRN (17:58)
[2021-06-17] MEDS ORDERED: Ondansetron 4 MG/2 ML VIAL IVP PRN (17:58)
[2021-06-17] MEDS ORDERED: Naloxone 0.4 MG/ML INJ IVP PRN (17:58)
[2021-06-17] MEDS: Ascorbic Acid 500 MG TABLET PO SCH (20:55)
[2021-06-17] MEDS: *HR* FentaNYL PATCH 50 MCG PATCH TD SCH (21:17)
[2021-06-18] MEDS: ceFAZolin 2,000 MG in 0.9 % Sodium Chloride 100 ML IVPB SCH ×3 (00:01→17:15)
[2021-06-18] MEDS: Baclofen 10 MG TABLET PO PRN ×2 (00:06→14:07)
[2021-06-18] MEDS: *HR* HYDROmorphone (PF) 1 MG/ML SYRINGE IVP PRN ×2 (01:40→05:56)
[2021-06-18] MEDS: Ringers Solution, Lactated 1,000 ML IVC SCH ×2 (05:54→20:15)
[2021-06-18] MEDS: *HR* Heparin 5,000 UNIT/ML VIAL SQ SCH ×2 (05:55→17:18)
[2021-06-18] MEDS ORDERED: Furosemide 40 MG TABLET PO SCH (08:00)
[2021-06-18] MEDS: Aspirin Enteric Coated 81 MG Tablet PO SCH (08:30)
[2021-06-18] MEDS: lamoTRIgine 100 MG TABLET PO SCH ×2 (08:30→20:12)
[2021-06-18] MEDS: Ascorbic Acid 500 MG TABLET PO SCH ×2 (08:30→17:18)
[2021-06-18] MEDS: Multivit/Ca/Min/Fe/FA 1 TAB TABLET PO SCH (08:30)
[2021-06-18] MEDS: Carbidopa/Levodopa ER 50/200 TABLET PO SCH ×2 (08:30→20:12)
[2021-06-18] MEDS: PARoxetine 20 MG TABLET PO SCH (08:30)
[2021-06-18] MEDS: Cholecalciferol (D-3) 1,000 UNIT (25MCG) TABLET PO SCH (08:31)
[2021-06-18] MEDS ORDERED: Acetaminophen IV 1,000 MG/100 ML BAG IVPB ONE (09:10)
[2021-06-18] MEDS ORDERED: *HR* OxyCODONE Immed Rel 5 MG TABLET PO PRN ×2 (09:12→13:25)
[2021-06-18 10:45] LABS: Basophils % 0.4 %; Eosinophils # 0.1 K/mcL (0.0-0.6); Eosinophils % 1.7 %; Hematocrit 34.2 % (35.3-44.9); Hemoglobin 11.5 g/dL (11.5-15.4); Lymphocytes # 0.8 K/mcL (0.6-4.6); Lymphocytes % 10.6 %; Mean Corpuscular HGB Conc 33.6 g/dL (31.6-35.5); Mean Corpuscular Hemoglobin 30.6 pg (28.0-33.3); Mean Platelet Volume 8.2 fL (9.4-12.4); Monocytes # 0.8 K/mcL (0.0-1.3); Monocytes % 9.9 %; Neutrophils # 5.9 K/mcL (1.6-8.9); Platelet Count 322 K/mcL (140-400); Red Blood Count 3.76 M/mcL (3.82-4.97); Red Cell Distribution Width 13.2 % (11.5-14.5); Segmented Neutrophils % 76.4 %; White Blood Count 7.7 K/mcL (4.3-11.1)
[2021-06-18] MEDS ORDERED: *HR* FentaNYL PATCH 50 MCG PATCH TD SCH (11:00)
[2021-06-18 11:05] LABS: BUN/Creatinine Ratio 14 (6-26); Blood Urea Nitrogen 11 mg/dL (8-23); Calcium 9.2 mg/dL (8.6-10.3); Carbon Dioxide 26 mEq/L (23-29); Chloride 98 mEq/L (98-107); Glucose 116 mg/dL (70-105); Osmolality,Calculated 280 (280-300); Potassium 3.2 mEq/L (3.5-5.1); Sodium 135 mEq/L (136-145); eGFR For African Americans > 60 (> 60); eGFR For Non-African Americans > 60 (> 60)
[2021-06-18] MEDS: Ketorolac 30 MG/ML VIAL IVP PRN ×2 (11:07→20:16)
[2021-06-18] MEDS ORDERED: tiZANidine 4 MG TABLET PO PRN (15:00)
[2021-06-18] MEDS: *HR* OxyCODONE Immed Rel 5 MG TABLET PO PRN (17:17)
[2021-06-19] MEDS: ceFAZolin 2,000 MG in 0.9 % Sodium Chloride 100 ML IVPB SCH ×3 (00:17→15:14)
[2021-06-19] MEDS: *HR* OxyCODONE Immed Rel 5 MG TABLET PO PRN ×4 (01:52→21:24)
[2021-06-19 04:01] LABS: BUN/Creatinine Ratio 14 (6-26); Blood Urea Nitrogen 10 mg/dL (8-23); Carbon Dioxide 28 mEq/L (23-29); Chloride 102 mEq/L (98-107); Glucose 99 mg/dL (70-105); Osmolality,Calculated 283 (280-300); Potassium 3.3 mEq/L (3.5-5.1); Sodium 137 mEq/L (136-145); eGFR For African Americans > 60 (> 60); eGFR For Non-African Americans > 60 (> 60)
[2021-06-19] MEDS: *HR* Heparin 5,000 UNIT/ML VIAL SQ SCH ×2 (05:58→17:07)
[2021-06-19] MEDS: Multivit/Ca/Min/Fe/FA 1 TAB TABLET PO SCH (08:29)
[2021-06-19] MEDS: Aspirin Enteric Coated 81 MG Tablet PO SCH (08:30)
[2021-06-19] MEDS: Ascorbic Acid 500 MG TABLET PO SCH ×2 (08:30→15:08)
[2021-06-19] MEDS: Carbidopa/Levodopa ER 50/200 TABLET PO SCH ×2 (08:31→21:16)
[2021-06-19] MEDS: Cholecalciferol (D-3) 1,000 UNIT (25MCG) TABLET PO SCH (08:31)
[2021-06-19] MEDS: PARoxetine 20 MG TABLET PO SCH (08:31)
[2021-06-19] MEDS: lamoTRIgine 100 MG TABLET PO SCH ×2 (08:32→21:16)
[2021-06-19] MEDS: Ringers Solution, Lactated 1,000 ML IVC SCH ×2 (10:21)
[2021-06-19] MEDS: Baclofen 10 MG TABLET PO SCH ×2 (15:08→21:16)
[2021-06-20] MEDS: ceFAZolin 2,000 MG in 0.9 % Sodium Chloride 100 ML IVPB SCH ×4 (00:26→23:48)
[2021-06-20 05:23] LABS: BUN/Creatinine Ratio 18 (6-26); Blood Urea Nitrogen 12 mg/dL (8-23); Calcium 9.4 mg/dL (8.6-10.3); Carbon Dioxide 29 mEq/L (23-29); Chloride 103 mEq/L (98-107); Glucose 95 mg/dL (70-105); Osmolality,Calculated 288 (280-300); Potassium 3.5 mEq/L (3.5-5.1); Sodium 139 mEq/L (136-145); eGFR For African Americans > 60 (> 60); eGFR For Non-African Americans > 60 (> 60)
[2021-06-20] MEDS: *HR* Heparin 5,000 UNIT/ML VIAL SQ SCH ×2 (06:26→17:56)
[2021-06-20] MEDS: lamoTRIgine 100 MG TABLET PO SCH ×2 (08:32→20:54)
[2021-06-20] MEDS: Aspirin Enteric Coated 81 MG Tablet PO SCH (08:32)
[2021-06-20] MEDS: PARoxetine 20 MG TABLET PO SCH (08:32)
[2021-06-20] MEDS: Ascorbic Acid 500 MG TABLET PO SCH ×2 (08:32→16:50)
[2021-06-20] MEDS: Cholecalciferol (D-3) 1,000 UNIT (25MCG) TABLET PO SCH (08:32)
[2021-06-20] MEDS: Carbidopa/Levodopa ER 50/200 TABLET PO SCH ×2 (08:32→20:53)
[2021-06-20] MEDS: Baclofen 10 MG TABLET PO SCH ×3 (08:33→20:54)
[2021-06-20] MEDS: Multivit/Ca/Min/Fe/FA 1 TAB TABLET PO SCH (08:34)
[2021-06-20] MEDS: *HR* OxyCODONE Immed Rel 5 MG TABLET PO PRN ×2 (15:21→20:54)
[2021-06-20] MEDS: rifAMPin 150 MG CAPSULE PO SCH (17:55)
[2021-06-20] MEDS: *HR* FentaNYL PATCH 50 MCG PATCH TD SCH (20:54)
[2021-06-21 00:59] LABS: Alanine Aminotransferase < 3 Units/L (7-52); Albumin/Globulin Ratio 1.1 (1.1-2.2); Alkaline Phosphatase 50 Units/L (34-104); Aspartate Amino Transferase 12 Units/L (13-39); Bilirubin,Indirect 0.3 mg/dL (0.0-1.0); Bilirubin,Total 0.3 mg/dL (0.3-1.0); C-Reactive Protein 96 mg/L (Less than 10); Globulin 2.7 g/dL (2.4-3.5); Total Protein 5.7 g/dL (6.4-8.9)
[2021-06-21] MEDS: *HR* Heparin 5,000 UNIT/ML VIAL SQ SCH ×2 (06:09→17:50)
[2021-06-21] MEDS: PARoxetine 20 MG TABLET PO SCH (09:36)
[2021-06-21] MEDS: Aspirin Enteric Coated 81 MG Tablet PO SCH (09:36)
[2021-06-21] MEDS: Multivit/Ca/Min/Fe/FA 1 TAB TABLET PO SCH (09:37)
[2021-06-21] MEDS: Carbidopa/Levodopa ER 50/200 TABLET PO SCH ×2 (09:38→20:11)
[2021-06-21] MEDS: Ascorbic Acid 500 MG TABLET PO SCH ×2 (09:38→16:45)
[2021-06-21] MEDS: Cholecalciferol (D-3) 1,000 UNIT (25MCG) TABLET PO SCH (09:38)
[2021-06-21] MEDS: Baclofen 10 MG TABLET PO SCH ×3 (09:43→20:11)
[2021-06-21] MEDS: *HR* OxyCODONE Immed Rel 5 MG TABLET PO PRN ×2 (09:43→20:12)
[2021-06-21] MEDS: lamoTRIgine 100 MG TABLET PO SCH ×2 (09:44→20:11)
[2021-06-21] MEDS: ceFAZolin 2,000 MG in 0.9 % Sodium Chloride 100 ML IVPB SCH ×2 (09:44→16:46)
[2021-06-21] MEDS: rifAMPin 150 MG CAPSULE PO SCH ×2 (09:47→16:45)
[2021-06-22] MEDS: ceFAZolin 2,000 MG in 0.9 % Sodium Chloride 100 ML IVPB SCH ×2 (00:44→09:06)
[2021-06-22] MEDS: *HR* OxyCODONE Immed Rel 5 MG TABLET PO PRN ×2 (00:44→09:00)
[2021-06-22] MEDS: *HR* Heparin 5,000 UNIT/ML VIAL SQ SCH (05:49)
[2021-06-22 06:51] VITALS: BP 121/78; PULSE 84; TEMP 98.7; O2SAT 94
[2021-06-22] MEDS: Ascorbic Acid 500 MG TABLET PO SCH (09:00)
[2021-06-22] MEDS: Cholecalciferol (D-3) 1,000 UNIT (25MCG) TABLET PO SCH (09:00)
[2021-06-22] MEDS: Aspirin Enteric Coated 81 MG Tablet PO SCH (09:01)
[2021-06-22] MEDS: PARoxetine 20 MG TABLET PO SCH (09:01)
[2021-06-22] MEDS: Carbidopa/Levodopa ER 50/200 TABLET PO SCH (09:02)
[2021-06-22] MEDS: Baclofen 10 MG TABLET PO SCH (09:02)
[2021-06-22] MEDS: Multivit/Ca/Min/Fe/FA 1 TAB TABLET PO SCH (09:05)
[2021-06-22] MEDS: lamoTRIgine 100 MG TABLET PO SCH (09:05)
[2021-06-22] MEDS: rifAMPin 150 MG CAPSULE PO SCH (09:06)
[2021-06-22 11:40] LABS: Influenza A PCR Negative (Negative); Influenza B PCR Negative (Negative); Resp. Syncytial Virus PCR Negative (Negative); SARS-CoV-2 by PCR (In House) Negative (Negative)
== END 2021-06-22 14:16 | DRG 467 ==
LOC: 4WAOSI 09:48 → EMEROOARM 09:48 → SUATTDRO 18:20 → 4WAOSI 19:42 → SUATTDRO 06-14 18:43
PROVIDERS: ADMIT General Practice; ATTEND Internal Medicine